=== PATIENT | male | born 1970 | race Caucasian/White ===

== ENCOUNTER 2019-12-27 16:59 | Emergency (ER) | payer SELFPAY ==
[~2019-12-27] VITALS: Ht 172.7 cm; Wt 85.7 kg
[2019-12-27 17:17] VITALS: Ht 172.7 cm; Wt 85.7 kg
[2019-12-27 17:52] LABS: BASOPHIL % 1.3 % (0-2); PLATELET COUNT 164 x10^3mcL (130-400); RED CELL DISTRIBUTION WIDTH 14.1 % (11.5-14.5)
[2019-12-27 17:53] LABS: microscopic required? NO
[2019-12-27 18:04] LABS: UA SPECIFIC GRAVITY <=1.005 (1.005-1.035); urine erythrocyte NEGATIVE (NEGATIVE)
[2019-12-27 18:18] LABS: CALCIUM 8.5 mg/dL (8.5-10.1); CARBON DIOXIDE 26.5 mmol/L (21-32); CHLORIDE SERUM 102 mmol/L (98-107); CREATININE SERUM 0.8 mg/dL (0.7-1.3); GFR1 > 60 mL/min; GLUCOSE SERUM 167 mg/dL (74-106); POTASSIUM SERUM 3.5 mmol/L (3.5-5.1); SODIUM SERUM 138 mmol/L (136-145)
[2019-12-27 18:22] LABS: ALBUMIN 3.9 g/dL (3.4-5.0); ALKALINE PHOSPHATASE 73 U/L (46-116); ALT/SGPT 67 U/L (16-63); AST/SGOT 55 U/L (15-37); BILIRUBIN TOTAL 0.25 mg/dL (0.20-1.00); LACTIC DEHYDROGENASE (LDH) 241 U/L (100-190); TOTAL PROTEIN, SERUM 7.2 g/dL (6.4-8.2)
[2019-12-27 18:29] LABS: C REACTIVE PROTEIN < 0.2 mg/dL (<=0.9)
[2019-12-27 18:36] LABS: AMPHETAMINE QUAL UR NONE DETECTED (See below)
[2019-12-27 20:25] VITALS: BP 128/68
== END 2019-12-27 20:25 | disposition home or self-care (01) ==
LOC: ED 16:59
PROVIDERS: Specialist
DX: F10.129 Alcohol abuse with intoxication, unspecified (principal); Z88.0 Allergy status to penicillin
CPT/HCPCS: 83880; 85378; 87804; G0480; Q0092